=== PATIENT | female | born 1965 ===

== ENCOUNTER 2025-01-21 07:41 | Inpatient (IN) ==
[2025-01-21] MEDS ORDERED: IOPAMIDOL 100 ML BOTTLE IV ONE (07:42)
[2025-01-21] MEDS: IPRATROPIUM/ALBUTEROL 3 ML AMPUL.NEB NEB ONE ×3 (08:10→10:53)
[2025-01-21] MEDS: 0.9 % SODIUM CHLORIDE 1,640 ML IV ONE (08:12)
[2025-01-21] MEDS: DEXAMETHASONE 10 MG/ML VIAL IV ONE (08:29)
[2025-01-21] MEDS: RACEPINEPHRINE 0.5 ML AMPUL.NEB NEB ONE (08:33)
[2025-01-21 08:42] LABS: INR 0.9 (0.9-1.1); Prothrombin Time 12.9 sec (11.9-14.5)
[2025-01-21 08:46] LABS: Basophils # (Auto) 0.12 K/mcL (0.00-0.30); Basophils % (Auto) 0.9 % (0.0-2.0); Eosinophils # (Auto) 1.47 K/mcL (0.00-0.70); Eosinophils % (Auto) 10.7 % (0.0-7.0); Hemoglobin 14.3 g/dL (11.2-15.7); Lymphocytes % (Auto) 37.1 % (15.5-49.0); Mean Cell Volume 94.9 fL (80.0-100.0); Mean Corpuscular HGB Conc 31.8 g/dL (31.0-36.0); Mean Platelet Volume 10.9 fL (8.8-12.5); Monocytes # (Auto) 0.92 K/mcL (0.10-0.90); Monocytes % (Auto) 6.7 % (1.0-12.0); Neutrophils % (Auto) 44.4 % (38.0-78.0); Platelet Count 326 K/mcL (140-440); RBC 4.74 M/mcL (3.59-5.38); Red Cell Distribution Width 12.4 % (11.5-14.5); WBC 13.8 K/mcL (4.5-11.0)
[2025-01-21 09:04] LABS: ALT/SGPT 29 U/L (<40); AST/SGOT 23 U/L (<32); Albumin 4.2 gm/dL (3.2-5.2); Albumin/Globulin Ratio 1.4 (1.0-2.3); Alkaline Phosphatase 110 U/L (39-117); Bilirubin,Total 0.7 mg/dL (0.1-1.0); Blood Urea Nitrogen 15 mg/dL (6-20); Calcium 8.9 mg/dL (8.6-10.4); Carbon Dioxide 22 mmol/L (22-30); Chloride 97 mmol/L (96-108); Glomerular Filtration Rate 80; Glucose 502 mg/dL (70-105); Potassium 3.6 mmol/L (3.3-5.1); Sodium 136 mmol/L (133-145)
[2025-01-21] MEDS: cefTRIAXone 2 GM in DEXTROSE 5% IN WATER 50 ML IV ONE (09:47)
[2025-01-21] MEDS: ASPIRIN 81 MG TAB.CHEW CHEWED ONE (11:43)
[2025-01-21] MEDS: OSELTAMIVIR PHOSPHATE 75 MG CAPSULE PO ONE (11:43)
[2025-01-21] MEDS ORDERED: ONDANSETRON 4 MG/2 ML VIAL IV PRN (16:55)
[2025-01-21] MEDS ORDERED: SENNOSIDES 1 TABLET PO PRN (16:55)
[2025-01-21] MEDS ORDERED: hydrALAZINE 20 MG/ML VIAL IV PRN (16:55)
[2025-01-21] MEDS ORDERED: DEXTROSE 50% 50 ML VIAL IV PRN (16:55)
[2025-01-21] MEDS ORDERED: NITROGLYCERIN 0.4 MG TAB.SUBL SL PRN (16:55)
[2025-01-21] MEDS ORDERED: LACTULOSE 20 GM/30 ML ORAL.SOL PO PRN (16:55)
[2025-01-21] MEDS ORDERED: DEXTROSE 31 GM ORAL.SUSP PO PRN (16:55)
[2025-01-21] MEDS ORDERED: ACETAMINOPHEN 325 MG TABLET PO PRN (16:55)
[2025-01-21] MEDS: INSULIN LISPRO 1 UNIT/0.01 ML UNIT SQ SCH (17:54)
[2025-01-21 18:07] LABS: Amphetamine Screen,Urine None detected; Barbiturate Screen,Urine None detected; Benzodiazepines Screen,Urine None detected; Cannabinoid Screen,Urine None detected; Cocaine Screen,Urine None detected; Fentanyl, Urine Screen None Detected; Opiate Screen,Urine None detected; Oxycodone, Urine Screen None detected; Phencyclidine Screen,Urine None detected
[2025-01-21] MEDS: IPRATROPIUM/ALBUTEROL 3 ML AMPUL.NEB NEB SCH (19:12)
[2025-01-21] MEDS: FAMOTIDINE 20 MG TABLET PO SCH (20:39)
[2025-01-21] MEDS: methylPREDNISolone SOD SUCC 40 MG/ML VIAL IV SCH (20:39)
[2025-01-21] MEDS: 0.9 % SODIUM CHLORIDE 10 ML SYRINGE IV SCH (20:42)
[2025-01-21] MEDS: DOCUSATE SODIUM 100 MG CAPSULE PO SCH (20:42)
[2025-01-22 06:31] LABS: Basophils # (Auto) 0 K/mcL (0.00-0.30); Basophils % (Auto) 0 % (0.0-2.0); Eosinophils # (Auto) 0 K/mcL (0.00-0.70); Eosinophils % (Auto) 0 % (0.0-7.0); Hematocrit 39.8 % (34.1-44.9); Lymphocytes # (Auto) 0.72 K/mcL (1.50-4.80); Lymphocytes % (Auto) 8.3 % (15.5-49.0); Mean Cell Volume 91.9 fL (80.0-100.0); Mean Corpuscular HGB Conc 32.7 g/dL (31.0-36.0); Mean Platelet Volume 10.8 fL (8.8-12.5); Monocytes # (Auto) 0.35 K/mcL (0.10-0.90); Neutrophils % (Auto) 87.5 % (38.0-78.0); Platelet Count 242 K/mcL (140-440); RBC 4.33 M/mcL (3.59-5.38); Red Cell Distribution Width 12.5 % (11.5-14.5); WBC 8.7 K/mcL (4.5-11.0)
[2025-01-22 06:44] LABS: ALT/SGPT 24 U/L (<40); AST/SGOT 17 U/L (<32); Albumin 3.9 gm/dL (3.2-5.2); Albumin/Globulin Ratio 1.4 (1.0-2.3); Alkaline Phosphatase 84 U/L (39-117); Bilirubin,Total 0.5 mg/dL (0.1-1.0); Blood Urea Nitrogen 13 mg/dL (6-20); Calcium 9.1 mg/dL (8.6-10.4); Carbon Dioxide 22 mmol/L (22-30); Chloride 100 mmol/L (96-108); Globulin 2.8 gm/dL (2.2-3.7); Glomerular Filtration Rate 105; Glucose 258 mg/dL (70-105); Potassium 3.9 mmol/L (3.3-5.1); Sodium 136 mmol/L (133-145)
[2025-01-22] MEDS: ENOXAPARIN 30 MG/0.3 ML SYRINGE SQ SCH (09:03)
[2025-01-22] MEDS: AZITHROMYCIN 250 MG TABLET PO SCH (09:04)
[2025-01-22 09:26] LABS: Estimated Average Glucose(eAG) 258 mg/dL; Hemoglobin A1C 10.6 % Hgb (4.0-6.0)
[2025-01-22] MEDS: guaiFENesin/DEXTROMETHORPHAN 5ML UD CUP PO PRN (21:26)
[2025-01-23 05:57] LABS: Basophils # (Auto) 0 K/mcL (0.00-0.30); Basophils % (Auto) 0 % (0.0-2.0); Eosinophils # (Auto) 0 K/mcL (0.00-0.70); Eosinophils % (Auto) 0 % (0.0-7.0); Hematocrit 39.1 % (34.1-44.9); Hemoglobin 12.7 g/dL (11.2-15.7); Lymphocytes # (Auto) 0.63 K/mcL (1.50-4.80); Lymphocytes % (Auto) 6.5 % (15.5-49.0); Mean Corpuscular HGB Conc 32.5 g/dL (31.0-36.0); Monocytes # (Auto) 0.35 K/mcL (0.10-0.90); Monocytes % (Auto) 3.6 % (1.0-12.0); Neutrophils % (Auto) 89.5 % (38.0-78.0); Platelet Count 248 K/mcL (140-440); RBC 4.25 M/mcL (3.59-5.38); Red Cell Distribution Width 12.8 % (11.5-14.5); WBC 9.7 K/mcL (4.5-11.0)
[2025-01-23 06:54] LABS: ALT/SGPT 24 U/L (<40); AST/SGOT 15 U/L (<32); Albumin 3.9 gm/dL (3.2-5.2); Albumin/Globulin Ratio 1.6 (1.0-2.3); Alkaline Phosphatase 80 U/L (39-117); Bilirubin,Total 0.5 mg/dL (0.1-1.0); Blood Urea Nitrogen 16 mg/dL (6-20); Calcium 9.1 mg/dL (8.6-10.4); Carbon Dioxide 22 mmol/L (22-30); Chloride 99 mmol/L (96-108); Globulin 2.5 gm/dL (2.2-3.7); Glomerular Filtration Rate 105; Glucose 283 mg/dL (70-105); Potassium 4.5 mmol/L (3.3-5.1); Sodium 134 mmol/L (133-145)
== END 2025-01-23 11:24 | disposition home or self-care (01) | DRG 202 ==
LOC: ED 07:41 → ICU 16:50
PROVIDERS: ADMIT Internal Medicine; ATTEND Internal Medicine